=== PATIENT | male | born 1985 | race Caucasian/White ===

== ENCOUNTER 2020-09-29 06:10 | Emergency (ER) | payer BC ==
[~2020-09-29] VITALS: Ht 182.9 cm; Wt 109.1 kg
[~2020-09-29 06:10] MED LIST: AMOXICILLIN 8751 TAB PO; LORTAB 5/500 501 TAB; NORCO 325 MG-51 TAB PO; PRILOSEC 20MG20 MG PO
[2020-09-29] MEDS ORDERED: PEPCID40 MG PO (06:28)
[2020-09-29] MEDS ORDERED: ZYRTEC 10MG10 MG PO (06:28)
[2020-09-29] MEDS ORDERED: PREDNISONE50 MG PO (06:28)
[2020-09-29 08:53] VITALS: BP 178/98; PULSE 76; TEMP 97.5
== END 2020-09-29 09:00 | disposition home or self-care (01) ==
LOC: COL.ER 06:10
DX: T78.3XXA Angioneurotic edema, initial encounter (principal); Z79.2 Long term (current) use of antibiotics; X58.XXXA Exposure to other specified factors, initial encounter
CPT/HCPCS: J1200; J2060; J2930